=== PATIENT | male | born 1940 | race Two or more races ===

== ENCOUNTER 2018-02-03 14:35 | Inpatient (IN) | payer MEDICARE ==
[~2018-02-03] VITALS: Ht 175.3 cm; Wt 109.8 kg
--- NOTE | 2018-02-03 14:40 | NUR ---
BIB 83 FOR SOB AT HD [facility]ENTER. PATIENT DID NOT START HD, ARRIVED TO ER ON NON REBREATHER MASK. A/OX 4, BREATHING EVEN, SLIGHTLY LABORED. IV INTACT AND PATENT ON R HAND, 20G EMERGENCY SERVICE WORKER. VITALS STABLE, NAD. SAFETY AND COMFORT MEASURES IN PLACE. MD AT BEDSIDE FOR EVAL.
--- NOTE | 2018-02-03 14:45 | NUR ---
PATIENT PLACED ON 3L OXYGEN VIA NC, TOLERATING WELL. OXYGEN SATURATION 99% NO COMPLICATION NOTED, WILL CONTINUE TO MONITOR.
--- NOTE | 2018-02-03 14:51 | NUR ---
STAMP PRESSER AT BEDSIDE FOR BLOOD DRAW.
[2018-02-03 14:55] LABS: BASOPHILS % (AUTO) 0.6 % (0.0-2.0); EOSINOPHILS % (AUTO) 5.8 % (0.0-6.0); HEMATOCRIT 30 % (39-51); HEMOGLOBIN 10.1 g/dL (13.5-17.5); LYMPHOCYTES # (AUTO) 1.1 /CMM (0.8-4.8); LYMPHOCYTES % (AUTO) 19.5 % (20.0-44.0); MEAN CORPUSCULAR HGB CONC 34 g/dl (31.0-36.0); MEAN CORPUSCULAR VOLUME 87 fL (80-96); MONOCYTES # (AUTO) 0.7 /CMM (0.1-1.30); NEUTROPHILS # (AUTO) 3.6 /CMM (1.8-8.9); NEUTROPHILS % (AUTO) 62.1 % (43.0-81.0); PLATELET COUNT (AUTO) 267 /CMM (150-450); RDW COEFFICIENT OF VARIATION 15.7 (11.5-15.0); RED BLOOD CELL COUNT(AUTO) 3.45 MIL/uL (4.5-6.0); WHITE BLOOD COUNT (AUTO) 5.7 K/uL (4.3-11.0)
[2018-02-03 15:04] LABS: CALCIUM, SERUM 9.3 mg/dL (8.5-10.1); CARBON DIOXIDE 28 mmol/L (21-32); CHLORIDE 98 mmol/L (98-107); CREATININE 6.5 mg/dL (0.6-1.3); GLUCOSE 92 mg/dL (74-106); POTASSIUM 4.5 mmol/L (3.5-5.1); SODIUM SERUM 137 mmol/L (136-145); UREA NITROGEN, BLOOD 40 mg/dL (7-18)
[2018-02-03 15:08] LABS: INR 1.19 (0.85-1.15)
[2018-02-03 15:12] LABS: TROPONIN I < 0.017 ng/mL (0.00-0.056)
[2018-02-03] MEDS ORDERED: HYDR-548 PO (15:15)
[2018-02-03] MEDS ORDERED: LEVO50TA8 PO (15:15)
[2018-02-03] MEDS ORDERED: INSU100V7 SQ (15:15)
[2018-02-03] MEDS ORDERED: ATOR40TA PO (15:15)
[2018-02-03] MEDS ORDERED: ASPI-1169 PO (15:15)
[2018-02-03] MEDS ORDERED: CARV6.252 PO (15:15)
[2018-02-03] MEDS ORDERED: AMLO10TA6 PO (15:15)
[2018-02-03 15:17] LABS: B-TYPE NATRIURETIC PEPTIDE 4076 PG/ML (0-125)
--- NOTE | 2018-02-03 16:45 | NUR ---
REPORT GIVEN TO RNMARIA M.
[2018-02-03] MEDS ORDERED: FUROSEMIDE 40 MG/4 ML VIAL IV ONE (17:00)
--- NOTE | 2018-02-03 17:03 | NUR ---
CALLED [facility], NURSE EMERGENCY WAS PAGED.
[2018-02-03] MEDS ORDERED: FUROSEMIDE 40 MG/4 ML VIAL ONE (17:06)
--- NOTE | 2018-02-03 18:00 | NUR ---
PATIENT TRANSPORTED TO [facility] VIA ACLS PROTOCOL. RNMARIA M TO PROVIDE MEÑO.
--- NOTE | 2018-02-03 18:15 | NUR ---
PATIENT ARRIVED TO THE UNIT IN STABLE CONDITION. [facility] VS WNL. SPO2 99% ON 2L VIA NASAL CANNULA. DENIES PAIN/DISCOMFORT. AMBULATORY. SKIN IS INTACT. A/O X4, COOPERATIVE. CURRENTLY IN BED. BED IS LOCKED IN LOWEST POSITION, SIDE RAILS UP X2,. CALL LIGHT WITHIN REACH. EDUCATED TO CALL FOR ASSISTANCE.RECEIVED ADMISSION TELEPHONE ORDERS FROM DR LOUIS. WILL FOLLOW RECEIVED. WILL ENDORSE TO THE DIGITAL COMPUTER SYSTEMS ANALYST RN FOR ADMISSION ASSESSMENT/EVALUATION/MEÑO/
--- NOTE | 2018-02-03 18:28 | NUR ---
HOME MED RECON FAXED TO THE PHARMACY
[2018-02-03] MEDS ORDERED: *INSULIN REGULAR(HUMULIN R)HUM 100 UNIT/ML VIAL SQ PRN (18:30)
[2018-02-03] MEDS ORDERED: ACETAMINOPHEN 650 MG/20.3 ML UDC NG PRN (18:30)
[2018-02-03] MEDS ORDERED: DEXTROSE 50%-WATER 50 ML DISP.SYRIN IV PRN (18:30)
[2018-02-03] MEDS ORDERED: INSULIN REGULAR, HUMAN 100 UNIT/ML 3 ML VIAL SQ PRN (18:30)
[2018-02-03] MEDS ORDERED: HYDROCODONE/APAP 10/325MG 1 EA TABLET PO PRN (19:30)
--- NOTE | 2018-02-03 19:32 | NUR ---
ENDORSED TO IFEANYI GUY FOR ADMISSION/MEÑO
--- NOTE | 2018-02-03 19:33 | NUR ---
RN NOTES RECEIVE PT IN BED A/O X 4, PT ONGOING DIALYSIS NOW. NO S/S OF DISTRESS, STABLE, SAFETY MEASURES IN PLACE, CALL LIGHT WITHIN REACH, WILL CONTINUE TO MONITOR
[2018-02-03 20:00] VITALS: BP 130/90
[2018-02-03] MEDS ORDERED: ZOLPIDEM TARTRATE 5 MG TABLET PO PRN (21:00)
--- NOTE | 2018-02-03 21:55 | NUR ---
INSULIN 6 UNIT OF [facility] NON ADMIN PT REFUSED MED DESPITE RISKS AND BENEFITS OFFERED 3 TIMES REFUSED PT A/O X4 PER PT MY SUGAR IS NORMAL
[2018-02-03] MEDS ORDERED: ATORVASTATIN 40 MG TABLET PO SCH (22:00)
[2018-02-03] MEDS ORDERED: INSULIN GLARGINE, 100 UNIT/ML CARTRIDGE SQ SCH (22:00)
[2018-02-04] VITALS: BP 109/60
[2018-02-04 00:12] VITALS: BP 109/60
[2018-02-04 04:00] VITALS: BP 115/62
--- NOTE | 2018-02-04 06:35 | NUR ---
WINCH TRUCK OPERATOR NOTES PT ASLEEP COMFORTABLY IN BED AND EASILY AWAKEN HEAD OF BED ELEVATED FOR BETTER LUNG EXPANSION AND GOOD CIRCULATION. TOLERATING ROOM AIR 98% NOT IN RESPIRATORY DISTRESS. STABLE CONDITION. NO ACUTE CHANGES THROUGHOUT THE SHIFT. PT KEPT CLEAN AND DRY AND COMFORT. NURSING CARE RENDERED. NEEDS ATTENDED AND ANTICIPATED. ON LOW BED TO ENSURE SAFETY, CALL LIGHT WITHIN REACH, WILL ENDORSE TO THE NEXT SHIFT CONTINUE PLAN OF CARE
[2018-02-04] MEDS ORDERED: BLOOD SUGAR DIAGNOSTIC 1 EACH STRIP IN SCH (07:30)
[2018-02-04] MEDS ORDERED: LEVOTHYROXINE SODIUM 50 MCG TABLET PO SCH (07:30)
--- NOTE | 2018-02-04 07:30 | NUR ---
MSRN NOTES. PT AM MEDS TO BE HELD R/T ONGOING HD.
[2018-02-04 07:41] LABS: BASOPHILS % (AUTO) 0.8 % (0.0-2.0); EOSINOPHILS % (AUTO) 6.8 % (0.0-6.0); HEMATOCRIT 29 % (39-51); HEMOGLOBIN 9.9 g/dL (13.5-17.5); LYMPHOCYTES % (AUTO) 17.5 % (20.0-44.0); MEAN CORPUSCULAR HGB CONC 34 g/dl (31.0-36.0); MEAN CORPUSCULAR VOLUME 89 fL (80-96); MONOCYTES # (AUTO) 0.7 /CMM (0.1-1.30); MONOCYTES % (AUTO) 12.2 % (2.0-12.0); NEUTROPHILS # (AUTO) 3.6 /CMM (1.8-8.9); NEUTROPHILS % (AUTO) 62.7 % (43.0-81.0); PLATELET COUNT (AUTO) 204 /CMM (150-450); RDW COEFFICIENT OF VARIATION 16.5 (11.5-15.0); RED BLOOD CELL COUNT(AUTO) 3.31 MIL/uL (4.5-6.0); WHITE BLOOD COUNT (AUTO) 5.8 K/uL (4.3-11.0)
--- NOTE | 2018-02-04 07:51 | NUR ---
MAILING SPECIALIST NOTES. PT RECEIVED A&0X3, RESTING IN BED. PT TOLERATING ROOM AIR WITHOUT SOB AND WITHOUT S/S OF RESP DISTRESS. PT DENIES PAIN. PT WITH IVC AT R FA SALINE FLUSH PATENT. PT FOR HD TODAY. BED IN LOWEST LOCKED POSITION WITH HNADRAILSX2 AND CALL TAPIA WITHIN REACH. PT BRIEFED ON TODAY'S POC AND IS WITHOUT CONCERN OR COMPLAINT AT THIS TIME.
[2018-02-04 07:59] LABS: CALCIUM, SERUM 8.5 mg/dL (8.5-10.1); CARBON DIOXIDE 30 mmol/L (21-32); CHLORIDE 100 mmol/L (98-107); CREATININE 5.5 mg/dL (0.6-1.3); GLUCOSE 96 mg/dL (74-106); POTASSIUM 4.3 mmol/L (3.5-5.1); SODIUM SERUM 139 mmol/L (136-145); UREA NITROGEN, BLOOD 29 mg/dL (7-18)
[2018-02-04 08:00] VITALS: BP 112/59
--- NOTE | 2018-02-04 08:19 | NUR ---
MSRN NOTES. TELE D/C PER .
[2018-02-04 08:20] VITALS: BP 123/60
[2018-02-04] MEDS ORDERED: ASPIRIN 81 MG TAB.CHEW PO SCH (09:00)
[2018-02-04] MEDS ORDERED: AMLODIPINE BESYLATE 10 MG TABLET PO SCH (09:00)
[2018-02-04] MEDS ORDERED: CARVEDILOL 6.25 MG TABLET PO SCH (09:00)
--- NOTE | 2018-02-04 11:15 | NUR ---
MSRN NOTES. PT PREPARED FOR D/C PER MD. PT WITH FAMILY AT BEDSIDE. PT TOLERATING ROOM AIR WITHOUT S/S OF RESP DISTRESS. PT DENIES PAIN OR DIZZINESS. PT IVC REMOVED AND NAD AT SITE. PT BRIEFED ON SOH D/C PACKET IS VERBALIZING UNDERSTANDING, RESOURCES AND INTENT TO FOLLOW POC. PT WITH ALL BELONGINGS AND DOCUMENT SIGNED, ROOM RE CHECKED FOR BELONGINGS PRIOR TO EXIT. PT AGAIN REFUSED 0720 MEDS, AND STATES HE WILL TAKE AT HOME. RN ESCORT TO FAMILY CAR FOR TRANSPORT. PT AND AND FAMILY ARE WITHOUT CONCERN OR COMPLAINT AT THIS TIME.
[2018-02-04 11:37] LABS: EOSINOPHILS % (MANUAL) 5 % (0-4); LYMPHOCYTES % (MANUAL) 11 % (16-48); MONOCYTES % (MANUAL) 13 % (0-11.0); NEUTROPHILS % (MANUAL) 71 (42-76)
== END 2018-02-04 11:15 | disposition home or self-care (01) | DRG 314 ==
LOC: ER 14:38 → TELE 17:55 → MED 02-04 08:18
PROVIDERS: ADMIT Internal Medicine; ATTEND Internal Medicine
PROC: 5A1D70Z Performance of Urinary Filtration, Intermittent, Less than 6 Hours Per Day (ICD-10-PCS; principal; 2018-02-03)
PROC: 5A1D70Z Performance of Urinary Filtration, Intermittent, Less than 6 Hours Per Day (ICD-10-PCS; 2018-02-04)
DX: I95.9 Hypotension, unspecified (principal); N18.6 End stage renal disease; I13.2 Hypertensive heart and chronic kidney disease with heart failure and with stage 5 chronic kidney disease, or end stage renal disease; E11.22 Type 2 diabetes mellitus with diabetic chronic kidney disease; G62.9 Polyneuropathy, unspecified; D63.1 Anemia in chronic kidney disease; J44.9 Chronic obstructive pulmonary disease, unspecified; I25.10 Atherosclerotic heart disease of native coronary artery without angina pectoris; E03.9 Hypothyroidism, unspecified; Z95.1 Presence of aortocoronary bypass graft; R53.1 Weakness; E78.5 Hyperlipidemia, unspecified; Z99.2 Dependence on renal dialysis; Z87.891 Personal history of nicotine dependence; I50.9 Heart failure, unspecified
CPT/HCPCS: 36415; 71045-TC; 80048-TC; 82962-TC; 83880; 84484-TC; 85025-TC; 85730-TC; 87081-TC; 90935-TC; A4606; J1815; J1940; Z7610

== ENCOUNTER 2020-10-29 05:11 | Inpatient (IN) | payer MEDICARE ==
[~2020-10-29] VITALS: Ht 167.6 cm; Wt 108.9 kg
[~2020-10-29 05:11] MED LIST: AMLO-213 PO; ASPI-1169 PO; ATOR40TA PO; CARV6.252 PO; HYDR-4354 PO; INSU100V7 SQ; LEVO50TA8 PO
--- NOTE | 2020-10-29 05:16 | NUR ---
PT BIBRA81 C/O SOB AND CP. PT TESTED POSITIVE FOR COVID 10/26. PT IS ON DIALYSIS, LAST DIALYSIS WAS 10/24. PT MISSED LAST SCHEDULED DIALYSIS D/T HIS POSITIVE COVID TEST. HE WAS AWAITNG A NEW FACILITY FOR COVID PTS. PT A&OX4, PT DOES HAVE TO BE MINDFUL OF TAKING DEEP BREATHS, BUT IS ABLE TO SPEAK IN FULL SENTENCES. PT SKIN WARM, DRY, AND INTACT. PT CONNECTED TO THE LINUX NETWORK SYSTEMS ADMINISTRATOR AND POX. CALL LIGHT WITHIN REACH. WILL CONITNUE TO MONITOR
[2020-10-29 05:45] LABS: BASOPHILS % (AUTO) 0.6 % (0.0-2.0); EOSINOPHILS % (AUTO) 1.8 % (0.0-6.0); HEMATOCRIT 33 % (39-51); HEMOGLOBIN 11.5 g/dL (13.5-17.5); LYMPHOCYTES # (AUTO) 0.6 /CMM (0.8-4.8); LYMPHOCYTES % (AUTO) 16.8 % (20.0-44.0); MEAN CORPUSCULAR HGB CONC 35 g/dl (31.0-36.0); MEAN CORPUSCULAR VOLUME 94 fL (80-96); MONOCYTES # (AUTO) 0.5 /CMM (0.1-1.30); MONOCYTES % (AUTO) 13.3 % (2.0-12.0); NEUTROPHILS # (AUTO) 2.3 /CMM (1.8-8.9); NEUTROPHILS % (AUTO) 67.5 % (43.0-81.0); PLATELET COUNT (AUTO) 140 /CMM (150-450); RED BLOOD CELL COUNT(AUTO) 3.52 MIL/uL (4.5-6.0); WHITE BLOOD COUNT (AUTO) 3.4 K/uL (4.3-11.0)
--- NOTE | 2020-10-29 05:45 | NUR ---
COVID SWAB SENT TO LAB
[2020-10-29 05:54] LABS: CALCIUM, SERUM 8.7 mg/dL (8.5-10.1); CARBON DIOXIDE 23 mmol/L (21-32); CHLORIDE 97 mmol/L (98-107); GLUCOSE 80 mg/dL (74-106); POTASSIUM 4.5 mmol/L (3.5-5.1); SODIUM SERUM 135 mmol/L (136-145)
--- NOTE | 2020-10-29 06:01 | NUR ---
XRAY AT BEDSIDE
[2020-10-29 06:05] LABS: CREATININE 11.5 mg/dL (0.6-1.3); UREA NITROGEN, BLOOD 101 mg/dL (7-18)
--- NOTE | 2020-10-29 06:05 | NUR ---
СЕРГЕЙ WATKINS; GIVEN TO DR. OSPINA [id number] CREAT 11.5
[2020-10-29] MEDS ORDERED: ALBUTEROL SULFATE 8 GM HFA.AER.AD IH PRN (06:30)
[2020-10-29] MEDS ORDERED: DEXAMETHASONE SOD PHOSPHATE 10 MG/ML VIAL IV ONE (06:30)
[2020-10-29] MEDS ORDERED: DEXAMETHASONE SOD PHOSPHATE 10 MG/ML VIAL ONE (06:53)
[2020-10-29 07:19] LABS: C-REACTIVE PROTEIN 5.2 mg/dL (0.0-0.9)
[2020-10-29] MEDS: LEVOTHYROXINE SODIUM 50 MCG TABLET PO SCH (08:00)
[2020-10-29] MEDS ORDERED: ACETAMINOPHEN 650 MG/SUPP.RECT RC PRN (08:00)
[2020-10-29 08:03] LABS: ABG BASE EXCESS -7.4 mmol/L; ABG OXYGEN SATURATION 97.4 % (92.0-98.5); ABG PCO2 32.4 mmHg (35.0-45.0); ABG PH 7.346 (7.350-7.450); ABG PO2 110.4 mmHg (75.0-100.0); COHb 0.2 % (0.5-1.5); MetHb 0.3 % (0.0-1.5); O2Hb 96.9 % (94.0-97.0); SITE, ABG Right Radial; VENT MODE, BG N/C 2LPM
[2020-10-29] MEDS: CEFTRIAXONE 1 G in IV D5W 50 ML IV SCH (08:30)
[2020-10-29] MEDS: ASPIRIN 81 MG TAB.CHEW PO SCH (09:55)
[2020-10-29] MEDS: AZITHROMYCIN 500 MG in IV D5W 250 ML IV SCH (09:55)
[2020-10-29] MEDS: CARVEDILOL 6.25 MG TABLET PO SCH ×2 (09:56→17:17)
[2020-10-29] MEDS: AMLODIPINE BESYLATE 10 MG TABLET PO SCH (09:56)
[2020-10-29] MEDS ORDERED: CARVEDILOL 6.25 MG TABLET ONE (17:19)
[2020-10-29] MEDS ORDERED: HYDROCODONE/APAP 10/325MG TABLET ONE (17:21)
[2020-10-29] MEDS: HYDROCODONE/APAP 10/325MG TABLET PO PRN (17:45)
--- NOTE | 2020-10-29 18:19 | NUR ---
SPOKE TO JOHN PAUL PARRA DNP REGARDING DIALYSIS ORDER. PER KRISTIAN PARRA, DIALYSIS ORDER HAVE TO BE PALCED BY SERGIO MCGOVERN.
--- NOTE | 2020-10-29 18:25 | NUR ---
REPORT GIVEN TO MALENA PEDERSEN FOR MEÑO
--- NOTE | 2020-10-29 19:00 | NUR ---
pt transported to unit on [address] with emt and rn at bedside w/ acls protocol. nad noted during transport. pt ambulated from gurney to bed w/o assist
--- NOTE | 2020-10-29 19:30 | NUR ---
RN NOTES PT CAME IN FROM ER AT 1906. ALERT AND ORIENTED X 4. ABLE TO COMMUNICATE NEEDS VERBALLY, BREATHING EVEN AND UNLABORED. COMPLAINS OF SOB ONLY WHEN COUGHING. ON O2 VIA NC AT 2L WITH O2 SAT OF 98 %. DENIES ANY PAIN AT THIS TIME. ON TELE MONITOR SHOWS SINUS RHYTHM HR 63. WITH LEFT FA AV FISTULA, BRUIT AND THRILL PRESENT. R AC G 18 PATENT AND INTACT. IV SITE NORMAL, NO REDNESS NOTED. PT AMBULATORY. SKIN IS INTACT. PT ORIENTED TO FACILITY ROUTINE. ALL SAFETY MEASURES IMPLEMENTED PER PROTOCOL. CALL LIGHT WITHIN REACH. SIDE RAILS UP X 2. BED LOCKED IN LOWEST POSITION.
--- NOTE | 2020-10-29 21:30 | NUR ---
RN NOTES PT ONLY WANTS TO DISCLOSE HEALTH INFORMATION TO DAUGHTER ROMERO AND GRAND DAUGHTER ANDRE. CHARGE NURSE MADE AWARE. PUT A NOTE ON PTS CHART.
[2020-10-29] MEDS: ATORVASTATIN 40 MG TABLET PO SCH (22:01)
[2020-10-30] VITALS: BP 115/81
--- NOTE | 2020-10-30 00:20 | NUR ---
RN NOTE PT DONE WITH DIALYSIS. 3L REMOVED. NO DISTRESS NOTED. AV FISTULA DRESSING CLEAN AND INTACT. NO BLEEDING NOTED.
[2020-10-30] MEDS: ACETAMINOPHEN 325 MG TABLET PO PRN ×2 (00:28→21:23)
--- NOTE | 2020-10-30 00:28 | NUR ---
RN NOTE PT COMPLAINED ON SCIATIC PAIN 04/10. PT REQUESTED FOR TYLENOL, REFUSED NORCO.
--- NOTE | 2020-10-30 01:30 | NUR ---
RN NOTE PT SLEEPING COMFORTABLY. NO SIGNS OF PAIN.
[2020-10-30 04:00] VITALS: BP 112/79
[2020-10-30 06:31] LABS: BASOPHILS % (AUTO) 0.1 % (0.0-2.0); EOSINOPHILS % (AUTO) 0.1 % (0.0-6.0); HEMATOCRIT 32 % (39-51); HEMOGLOBIN 11.1 g/dL (13.5-17.5); LYMPHOCYTES # (AUTO) 0.5 /CMM (0.8-4.8); LYMPHOCYTES % (AUTO) 13.5 % (20.0-44.0); MEAN CORPUSCULAR HGB CONC 35 g/dl (31.0-36.0); MEAN CORPUSCULAR VOLUME 95 fL (80-96); MONOCYTES # (AUTO) 0.4 /CMM (0.1-1.30); NEUTROPHILS # (AUTO) 2.6 /CMM (1.8-8.9); NEUTROPHILS % (AUTO) 74.3 % (43.0-81.0); PLATELET COUNT (AUTO) 140 /CMM (150-450); RED BLOOD CELL COUNT(AUTO) 3.38 MIL/uL (4.5-6.0); WHITE BLOOD COUNT (AUTO) 3.5 K/uL (4.3-11.0)
--- NOTE | 2020-10-30 06:48 | NUR ---
RN NOTES Patient in bed sleeping, easily arousable by verbal stimuli. Continue on o2 via nc at 2L, tolerating, no distress noted. Pt denies any sob. Tele reading sr hr 62. Pt able to make needs known, attended to needs. No s/sx of complications form hd noted. Dressing on left av fistula clean dry and intact. Strict isolation precaution maintained. All safety measure implemented. Will endorse to next shift nurse for mc.
[2020-10-30 07:02] LABS: ALANINE AMINOTRANSFERASE 23 U/L (12-78); ALBUMIN 3.1 g/dL (3.4-5.0); ALKALINE PHOSPHATASE 66 U/L (46-116); ASPARTATE AMINOTRANSFERASE 22 U/L (15-37); BILIRUBIN,TOTAL 0.3 mg/dL (0.2-1.0); CALCIUM, SERUM 8.5 mg/dL (8.5-10.1); CARBON DIOXIDE 27 mmol/L (21-32); CHLORIDE 100 mmol/L (98-107); CREATININE 7.4 mg/dL (0.6-1.3); GLUCOSE 145 mg/dL (74-106); POTASSIUM 3.7 mmol/L (3.5-5.1); SODIUM SERUM 137 mmol/L (136-145); UREA NITROGEN, BLOOD 57 mg/dL (7-18)
[2020-10-30 08:00] VITALS: BP 107/56
--- NOTE | 2020-10-30 08:00 | NUR ---
RN NOTES Patient in bed alert and oriented x4, easily arousable by verbal stimuli. Continue on o2 via nc at 2L, tolerating, no distress noted. Pt denies any sob. Tele reading sr. Pt able to make needs known, attended to needs. No s/sx of pain reported or visible.. Dressing on left av fistula clean dry and intact. Strict isolation precaution maintained. All safety measure implemented. call light within react. bed locked in position. will continue to monitor.
[2020-10-30] MEDS: CARVEDILOL 6.25 MG TABLET PO SCH ×2 (09:00→17:02)
[2020-10-30] MEDS: AMLODIPINE BESYLATE 10 MG TABLET PO SCH (09:00)
[2020-10-30] MEDS: ASPIRIN 81 MG TAB.CHEW PO SCH (09:13)
[2020-10-30] MEDS: LEVOTHYROXINE SODIUM 50 MCG TABLET PO SCH (09:13)
[2020-10-30] MEDS: DEXAMETHASONE SOD PHOSPHATE 4 MG/ML VIAL IV SCH (09:13)
--- NOTE | 2020-10-30 09:18 | NUR ---
RN NOTES HELD AMLOPIDINE AND CARVEDIOL FOR LOW SBP AND HR SBP 107/56 HR 58
--- NOTE | 2020-10-30 09:20 | NUR ---
PT IS GOING TO HAVE HEMODIALYSIS PROCEDURE TODAY.HELD ADMINISTERING IV ATB ZITHROMAX AND ROCEPHIN FOR NOW AND CLARIFYING WITH THE INTERNATIONAL TRADE MANAGER,OSCAR WHAT TIME WILL IT BE DONE
--- NOTE | 2020-10-30 09:23 | NUR ---
OSCAR,GIFTS OFFICER ARRIVED AND WILL CLARIFY WITH DR ARECHIGA IF HEMODIALYSIS WILL BE DONE TODAY.
[2020-10-30] MEDS: CEFTRIAXONE 1 G in IV D5W 50 ML IV SCH (10:33)
[2020-10-30 12:00] VITALS: BP 131/65
[2020-10-30 16:00] VITALS: BP 116/59
[2020-10-30] MEDS: AZITHROMYCIN 500 MG in IV D5W 250 ML IV SCH (16:49)
--- NOTE | 2020-10-30 18:37 | NUR ---
RN NOTES Patient sitting in chair at the bedside alert and oriented x4.Continue on O2 via nc at 2L, tolerating, no distress noted. Pt denies any sob. Tele reading sr. Pt able to make needs known, attended to needs. No s/sx of pain reported or visible. Dressing on left av fistula clean dry and intact. Strict isolation precaution maintained. All safety measure implemented. call light within react. bed locked in position. will continue to monitor.
[2020-10-30 20:00] VITALS: BP 162/71
[2020-10-30] MEDS: ATORVASTATIN 40 MG TABLET PO SCH (21:23)
--- NOTE | 2020-10-30 23:32 | NUR ---
PT SLEEPING COMFORTABLY DENYING ANY PAIN OR DISTRESS.CALL LIGHT PLACED WITHIN REACH.ENDORSED TO NIGHT NURSE CARE.
[2020-10-31 00:43] VITALS: BP 125/50
[2020-10-31 04:21] VITALS: BP 104/54
[2020-10-31 06:35] LABS: BASOPHILS % (AUTO) 0.2 % (0.0-2.0); HEMATOCRIT 31 % (39-51); HEMOGLOBIN 10.7 g/dL (13.5-17.5); LYMPHOCYTES # (AUTO) 0.5 /CMM (0.8-4.8); MEAN CORPUSCULAR HGB CONC 35 g/dl (31.0-36.0); MEAN CORPUSCULAR VOLUME 95 fL (80-96); MONOCYTES # (AUTO) 0.4 /CMM (0.1-1.30); MONOCYTES % (AUTO) 6.9 % (2.0-12.0); NEUTROPHILS # (AUTO) 4.5 /CMM (1.8-8.9); NEUTROPHILS % (AUTO) 82.9 % (43.0-81.0); PLATELET COUNT (AUTO) 171 /CMM (150-450); RED BLOOD CELL COUNT(AUTO) 3.26 MIL/uL (4.5-6.0); WHITE BLOOD COUNT (AUTO) 5.4 K/uL (4.3-11.0)
[2020-10-31 07:08] LABS: CALCIUM, SERUM 8.5 mg/dL (8.5-10.1); CARBON DIOXIDE 25 mmol/L (21-32); CHLORIDE 97 mmol/L (98-107); CREATININE 7.4 mg/dL (0.6-1.3); GLUCOSE 103 mg/dL (74-106); MAGNESIUM 2.1 mg/dL (1.8-2.4); PHOSPHORUS 6.8 mg/dL (2.5-4.9); POTASSIUM 4.1 mmol/L (3.5-5.1); SODIUM SERUM 136 mmol/L (136-145); UREA NITROGEN, BLOOD 60 mg/dL (7-18)
--- NOTE | 2020-10-31 07:26 | NUR ---
MANAGER HARDWARE OPENING NOTES PATIENT IN BED, ASLEEP. BREATHING IS EVEN AND UNLABORED. NO SIGNS OF SOB OR RESPIRATORY DISTRESS NOTED. NO S/S OF PAIN SUCH MOANING, GUARDING OR FACIAL GRIMACING. TELE READING SR 55. RFA MIDLINE PRESENT AND INTACT. SAFETY PRECAUTIONS IN PLACE, BED IN LOW POSITION AND LOCKED, RAILS UP X2, CALL LIGHT WITHIN REACH. WILL CONTINUE TO MONITOR PATIENT.
--- NOTE | 2020-10-31 08:05 | NUR ---
STATIONARY ENGINEER SUPERVISOR NOTES PATIENT ACCIDENTLY PULLED ON HIS MIDLINE AND IT IS LEAKING NOW. CHARGE NURSE AWARE; MIDLINE NURSE CONTACTED.
[2020-10-31] MEDS: ASPIRIN 81 MG TAB.CHEW PO SCH (08:07)
[2020-10-31] MEDS: AMLODIPINE BESYLATE 10 MG TABLET PO SCH (08:07)
[2020-10-31] MEDS: CARVEDILOL 6.25 MG TABLET PO SCH ×2 (08:07→16:32)
[2020-10-31] MEDS: LEVOTHYROXINE SODIUM 50 MCG TABLET PO SCH (08:08)
[2020-10-31] MEDS: AZITHROMYCIN 250 MG TABLET PO SCH (08:20)
[2020-10-31 09:09] VITALS: BP 115/60
[2020-10-31 12:15] VITALS: BP 123/64
[2020-10-31] MEDS: CEFTRIAXONE 1 G in IV D5W 50 ML IV SCH (13:48)
[2020-10-31] MEDS: DEXAMETHASONE SOD PHOSPHATE 4 MG/ML VIAL IV SCH (13:55)
[2020-10-31 16:18] VITALS: BP 138/67
--- NOTE | 2020-10-31 18:37 | NUR ---
SOFTWARE DEVELOPMENT TEST ENGINEER CLOSING NOTES PATIENT REMAINS IN BED, RESTING, A/O X4. ON OXYGEN THERAPY AT 2 LPM VIA NASAL CANULA; BREATHING IS EVEN AND UNLABORED. NO SIGNS OF SOB OR RESPIRATORY DISTRESS NOTED. NO COMPLAINS OF PAIN DURING THE DAY. TELE READING SR 74. WENDIE MIDLINE PRESENT AND INTACT. ALL NEEDS ATTENDED THROUGHOUT THE DAY. SAFETY PRECAUTIONS IN PLACE, BED IN LOW POSITION AND LOCKED, RAILS UP X2, CALL LIGHT WITHIN REACH. WILL ENDORSE TO BLUEPRINTING AND PHOTOCOPY SUPERVISOR NURSE.
--- NOTE | 2020-10-31 19:15 | NUR ---
oral and maxillofacial pathologist opening notes Received Pt from morning nurse. Pt is sitting in bed comfortably talking on his cellphone. Pt is alert and orientedX4. Respiration is 2 L NC. No SOB. No S/S of distress noted. WENDIE midline# 18 is clean, intact flushes well and SL. Tele monitor showed sinus rhytm HR at 69 bpm. Safety precautions is maintained. Bed at low position, brakes locked, hob elevated, urinal at the bedside, side railsupX2 and call light is within reach. Will continue to monitor.
[2020-10-31 20:00] VITALS: BP 115/57
[2020-10-31] MEDS: ATORVASTATIN 40 MG TABLET PO SCH (21:04)
[2020-11-01] VITALS: BP 96/51
[2020-11-01 04:00] VITALS: BP 98/36
--- NOTE | 2020-11-01 06:57 | NUR ---
rn telephone triage closing notes Pt is resting in bed comfortably. Pt is alert and orientedX4. Respiration is 2 L NC. No SOB. No S/S of distress noted. VS is stable. Afebrile. WENDIE midline# 18 is clean, intact flushes well and SL. Tele monitor showed sinus rhytm with PAC HR at 60 bpm. Kept Pt clean, dry and comfortable. All needs met and attnded. Safety precautions is maintained. Bed at low position, brakes locked, hob elevated, urinal at the bedside, side railsupX2 and call light is within reach. Will endorse to morning nurse for MEÑO.
[2020-11-01 07:34] LABS: CALCIUM, SERUM 8.2 mg/dL (8.5-10.1); CARBON DIOXIDE 23 mmol/L (21-32); CHLORIDE 95 mmol/L (98-107); GLUCOSE 105 mg/dL (74-106); MAGNESIUM 2.1 mg/dL (1.8-2.4); SODIUM SERUM 133 mmol/L (136-145); UREA NITROGEN, BLOOD 79 mg/dL (7-18)
[2020-11-01 07:37] LABS: BASOPHILS % (AUTO) 0.1 % (0.0-2.0); HEMATOCRIT 31 % (39-51); HEMOGLOBIN 10.4 g/dL (13.5-17.5); LYMPHOCYTES # (AUTO) 0.5 /CMM (0.8-4.8); MEAN CORPUSCULAR HGB CONC 34 g/dl (31.0-36.0); MEAN CORPUSCULAR VOLUME 95 fL (80-96); MONOCYTES # (AUTO) 0.4 /CMM (0.1-1.30); NEUTROPHILS % (AUTO) 79.9 % (43.0-81.0); PLATELET COUNT (AUTO) 193 /CMM (150-450); RED BLOOD CELL COUNT(AUTO) 3.24 MIL/uL (4.5-6.0); WHITE BLOOD COUNT (AUTO) 4.9 K/uL (4.3-11.0)
[2020-11-01 07:42] LABS: PHOSPHORUS 8.1 mg/dL (2.5-4.9)
[2020-11-01 08:00] VITALS: BP 143/63
--- NOTE | 2020-11-01 08:06 | NUR ---
TELE/RN OPENING NOTES RELIEVED PATIENT ON BED. PATIENT IS ON 2 L OXYGEN VIA NASAL CANNULA. PATIENT IN NO APPARENT RESPIRATORY DISTRESS NOTED. NO COMPLAINED OF PAIN NOTED AT THIS TIME. TELE MONITOR READING SINUS RHYTHM 61BPM BPM. WILL CONTINUE TO MONITOR.
[2020-11-01] MEDS: LEVOTHYROXINE SODIUM 50 MCG TABLET PO SCH (09:26)
[2020-11-01] MEDS: AMLODIPINE BESYLATE 10 MG TABLET PO SCH (09:27)
[2020-11-01] MEDS: ASPIRIN 81 MG TAB.CHEW PO SCH (09:27)
[2020-11-01] MEDS: AZITHROMYCIN 250 MG TABLET PO SCH (09:27)
[2020-11-01] MEDS: CARVEDILOL 6.25 MG TABLET PO SCH ×2 (09:27→17:00)
[2020-11-01] MEDS: DEXAMETHASONE SOD PHOSPHATE 4 MG/ML VIAL IV SCH (09:27)
[2020-11-01] MEDS: CEFTRIAXONE 1 G in IV D5W 50 ML IV SCH (09:28)
[2020-11-01 12:00] VITALS: BP 143/63
[2020-11-01] MEDS ORDERED: DEXA6TAB6 PO (13:02)
[2020-11-01] MEDS ORDERED: AZIT250T13 PO (13:02)
[2020-11-01] MEDS ORDERED: ALBUMIN 25% 25 GM in PREMIX 1 EA IV STA (14:58)
[2020-11-01 16:00] VITALS: BP 106/48
--- NOTE | 2020-11-01 17:17 | NUR ---
unable to discharge today per community case manager unable to arrange oxygen until tommorw.
--- NOTE | 2020-11-01 18:19 | NUR ---
TELE/RN NOTES PATIENT COMPLAINED OF MILD BACK PAIN. PATIENT ASK FOR TYLENOL 650MG 1 TAB P.O. WAS GIVEN. WILL CONTINUE TO MONITOR.
--- NOTE | 2020-11-01 18:21 | NUR ---
TELE/RN NOTES BP 106/48 P 62 CARVEDILOL 6.25MG 1TAB P.O. WAS WITHHELD. WILL CONTINUE TO MONITOR.
[2020-11-01] MEDS: ACETAMINOPHEN 325 MG TABLET PO PRN (18:24)
--- NOTE | 2020-11-01 19:17 | NUR ---
sales representative sales manager opening notes Received Pt from morning nurse. Pt is resting in bed comfortably. Pt is alert and orientedX4. Respiration is 2 L NC. No SOB. No S/S of distress noted. WENDIE midline# 18 is clean, intact flushes well and SL. LFA AV fistula is clean, intact and patent. Tele monitor showed sinus rhytm HR at 70 bpm. Per am nurse Pt had dialysis today with output 1.7 L. Safety precautions is maintained. Bed at low position, brakes locked, hob elevated, urinal at the bedside, side railsupX2 and call light is within reach. Will continue to monitor.
--- NOTE | 2020-11-01 19:26 | NUR ---
TELE/RN CLOSING PATIENT IS ON BED, NON VERBAL. PATIENT IS ON 2 L OXYGEN VIA NASAL CANNULA TOLERATING WELL. PATIENT IN NO APPARENT RESPIRATORY DISTRESS NOTED. TELE MONITOR READING SINUS RHYTHM. SEEN AND EXAMINED BY MD WITH ORDERS MADE AND CARRIED OUT. ALL DUE MEDICATIONS WAS GIVEN. SAFETY PRECAUTIONS WAS IN PLACED. BED IN LOWEST POSITION AND LOCKED. SIDERAILS UP X2. CALL LIGHT WITHIN REACH. HEMODIALYSIS WAS DONE TODAY 1.7 L OUTPUT. WILL ENDORSED TO PCA FOR MEÑO.
[2020-11-01 20:00] VITALS: BP 115/88
[2020-11-01] MEDS: ATORVASTATIN 40 MG TABLET PO SCH (21:05)
--- NOTE | 2020-11-01 22:00 | NUR ---
family and consumer sciences teacher notes Pt is complaining of dry cough and requesting Robitussin. Informed and notified OLGA Oliva regarding Pt's cough. CINDER WORKER ordered Robittusin DM syrup 5 ml/po/ Q 6hr. Order carried out.
--- NOTE | 2020-11-01 22:26 | NUR ---
health educator notes Pt is complaining of dry cough and requesting robitussin. Administered Robitussin DM syrup 5 ml/ po/ Q 6 hr/prn as ordered for cough. Safety precaution is maintained. Will continue to monitor.
[2020-11-01] MEDS ORDERED: GUAIFENESIN/D-METHORPHAN HB 5 ML UDC PO PRN (22:30)
--- NOTE | 2020-11-01 23:55 | NUR ---
catalyst operator chief notes Pt's daughter called and asked about Pt's condition. Informed Pt daughter that Pt is stable and O2 sat is 90% on 2 L NC. No SOB. No S/S of distress noted. Pt is sleeping in bed comfortably. No cough. Pt's daughter appreciate the info and verbalize understanding. Will continue to monitor. Addendum: 11/02/20 at 0013 by ADELAIDE LOCO RN Pt daughter named Abbie.
[2020-11-02] VITALS: BP 112/46
[2020-11-02 04:00] VITALS: BP 117/52
[2020-11-02] MEDS: HYDROCODONE/APAP 10/325MG TABLET PO PRN ×2 (04:07→23:58)
--- NOTE | 2020-11-02 04:07 | NUR ---
industrial production manager notes Pt is complaining of back pain 9/10 on pain scale and requesting pain meds. Administered norco 10 as ordered for back pain. VS is stable. Safety precautions is maintained.
--- NOTE | 2020-11-02 07:00 | NUR ---
knotter closing notes Pt is resting in bed comfortably. Pt is alert and orientedX4. Respiration is 2 L NC. No SOB. No S/S of distress noted. VS is stable. Afebrile. WENDIE midline# 18 is clean, intact flushes well and SL. LFA AV fistula is clean, intact and patent. Tele monitor showed sinus rhytm with PAC HR at 68 bpm. Kept Pt clean,dry and comfortable. All needs met and attended. Safety precautions is maintained. Bed at low position, brakes locked, hob elevated, urinal at the bedside, side railsupX2 and call light is within reach. Will endorse to morning nurse for MEÑO.
[2020-11-02 07:39] LABS: CALCIUM, SERUM 8.7 mg/dL (8.5-10.1); CARBON DIOXIDE 29 mmol/L (21-32); CHLORIDE 96 mmol/L (98-107); GLUCOSE 103 mg/dL (74-106); MAGNESIUM 2.2 mg/dL (1.8-2.4); PHOSPHORUS 7.5 mg/dL (2.5-4.9); POTASSIUM 4.5 mmol/L (3.5-5.1); SODIUM SERUM 137 mmol/L (136-145); UREA NITROGEN, BLOOD 69 mg/dL (7-18)
[2020-11-02 07:41] LABS: CREATININE 7.5 mg/dL (0.6-1.3)
[2020-11-02 07:42] LABS: BASOPHILS % (AUTO) 0.1 % (0.0-2.0); HEMATOCRIT 31 % (39-51); HEMOGLOBIN 10.6 g/dL (13.5-17.5); LYMPHOCYTES # (AUTO) 0.5 /CMM (0.8-4.8); LYMPHOCYTES % (AUTO) 6.9 % (20.0-44.0); MEAN CORPUSCULAR HGB CONC 34 g/dl (31.0-36.0); MEAN CORPUSCULAR VOLUME 96 fL (80-96); MONOCYTES # (AUTO) 0.4 /CMM (0.1-1.30); MONOCYTES % (AUTO) 5.8 % (2.0-12.0); NEUTROPHILS # (AUTO) 5.9 /CMM (1.8-8.9); NEUTROPHILS % (AUTO) 87.2 % (43.0-81.0); PLATELET COUNT (AUTO) 207 /CMM (150-450); RED BLOOD CELL COUNT(AUTO) 3.26 MIL/uL (4.5-6.0); WHITE BLOOD COUNT (AUTO) 6.8 K/uL (4.3-11.0)
[2020-11-02 08:00] VITALS: BP 115/62
[2020-11-02] MEDS: LEVOTHYROXINE SODIUM 50 MCG TABLET PO SCH (08:52)
[2020-11-02] MEDS: AZITHROMYCIN 250 MG TABLET PO SCH (08:53)
[2020-11-02] MEDS: CEFTRIAXONE 1 G in IV D5W 50 ML IV SCH (08:53)
[2020-11-02] MEDS: ASPIRIN 81 MG TAB.CHEW PO SCH (08:53)
[2020-11-02] MEDS: CARVEDILOL 6.25 MG TABLET PO SCH ×2 (08:54→16:24)
[2020-11-02] MEDS: AMLODIPINE BESYLATE 10 MG TABLET PO SCH (08:54)
[2020-11-02] MEDS: DEXAMETHASONE SOD PHOSPHATE 4 MG/ML VIAL IV SCH (08:55)
[2020-11-02 10:53] LABS: ABG BASE EXCESS -0.8 mmol/L; ABG OXYGEN SATURATION 86.6 % (92.0-98.5); ABG PCO2 40.6 mmHg (35.0-45.0); ABG PH 7.391 (7.350-7.450); ABG PO2 52.6 mmHg (75.0-100.0); AaDO2 475.2 mmHg; COHb 0.6 % (0.5-1.5); O2Hb 86.1 % (94.0-97.0); SITE, ABG Right Radial; VENT MODE, BG NRB
[2020-11-02 12:00] VITALS: BP 96/48
[2020-11-02] MEDS: APIXABAN 2.5 MG TABLET PO SCH ×2 (12:46→16:25)
[2020-11-02 16:00] VITALS: BP 91/41
[2020-11-02 20:00] VITALS: BP 101/39
[2020-11-02] MEDS: ATORVASTATIN 40 MG TABLET PO SCH (21:19)
--- NOTE | 2020-11-02 22:44 | NUR ---
RN NOTES Seen and examined by OLGA Oliva. DIMITRIOS at this time.
[2020-11-03] VITALS: BP 101/51
[2020-11-03 04:00] VITALS: BP 103/39
--- NOTE | 2020-11-03 06:55 | NUR ---
RN CLOSING NOTES Pt on prone position SpO2 95%. Encourange on prone position as tolerated. All nursing needs attended, due meds given as ordered. Afebrile the whole shift. Endorsed.
[2020-11-03 07:42] LABS: ABG OXYGEN SATURATION 93.8 % (92.0-98.5); ABG PCO2 37.9 mmHg (35.0-45.0); ABG PH 7.393 (7.350-7.450); ABG PO2 68.4 mmHg (75.0-100.0); AaDO2 606.7 mmHg; COHb 0.6 % (0.5-1.5); MetHb 0.1 % (0.0-1.5); O2Hb 93.1 % (94.0-97.0); SITE, ABG Right Radial; VENT MODE, BG HFNC 60L 100% NRB
[2020-11-03 08:00] VITALS: BP 102/45
--- NOTE | 2020-11-03 08:00 | NUR ---
RECEIVED PATIENT IN BED. NO ACUTE DISTRESS NOTED. PATIENT ALERT & ORIENTED X3-4. PATIENT ON HIGH FLOW/NONREBREATHER MASK, TOLERATING WELL. PATIENT ON CARDIKAC MONITOR, NSR WITH PAC NOTED. PATIENT WENDIE MIDLING INTACT, FLUSHED WELL. PATIENT SAFETY MEASURES MAINTAINED. CALL LIGHT WITHIN REACH. WILL CONTINUE TO MONITOR.
[2020-11-03] MEDS: CEFTRIAXONE 1 G in IV D5W 50 ML IV SCH (08:29)
[2020-11-03] MEDS: ASPIRIN 81 MG TAB.CHEW PO SCH (08:29)
[2020-11-03] MEDS: AZITHROMYCIN 250 MG TABLET PO SCH (08:30)
[2020-11-03] MEDS: DEXAMETHASONE SOD PHOSPHATE 4 MG/ML VIAL IV SCH (08:30)
[2020-11-03] MEDS: LEVOTHYROXINE SODIUM 50 MCG TABLET PO SCH (08:30)
[2020-11-03] MEDS: CARVEDILOL 6.25 MG TABLET PO SCH ×2 (08:48→17:00)
[2020-11-03] MEDS: AMLODIPINE BESYLATE 10 MG TABLET PO SCH (08:49)
[2020-11-03] MEDS: APIXABAN 2.5 MG TABLET PO SCH ×2 (08:58→17:06)
[2020-11-03 09:52] LABS: BASOPHILS # (AUTO) 0.1 /CMM (0.0-0.2); BASOPHILS % (AUTO) 0.5 % (0.0-2.0); HEMATOCRIT 35 % (39-51); LYMPHOCYTES # (AUTO) 0.5 /CMM (0.8-4.8); LYMPHOCYTES % (AUTO) 4.3 % (20.0-44.0); MEAN CORPUSCULAR HGB CONC 34 g/dl (31.0-36.0); MEAN CORPUSCULAR VOLUME 96 fL (80-96); MONOCYTES # (AUTO) 0.5 /CMM (0.1-1.30); MONOCYTES % (AUTO) 4.3 % (2.0-12.0); NEUTROPHILS # (AUTO) 9.8 /CMM (1.8-8.9); NEUTROPHILS % (AUTO) 90.9 % (43.0-81.0); PLATELET COUNT (AUTO) 247 /CMM (150-450); RED BLOOD CELL COUNT(AUTO) 3.67 MIL/uL (4.5-6.0); WHITE BLOOD COUNT (AUTO) 10.8 K/uL (4.3-11.0)
[2020-11-03 10:15] LABS: ALANINE AMINOTRANSFERASE 34 U/L (12-78); ALBUMIN 2.9 g/dL (3.4-5.0); ALKALINE PHOSPHATASE 57 U/L (46-116); ASPARTATE AMINOTRANSFERASE 67 U/L (15-37); BILIRUBIN,TOTAL 0.5 mg/dL (0.2-1.0); CALCIUM, SERUM 8.7 mg/dL (8.5-10.1); CARBON DIOXIDE 26 mmol/L (21-32); CHLORIDE 95 mmol/L (98-107); GLUCOSE 110 mg/dL (74-106); POTASSIUM 4.8 mmol/L (3.5-5.1); SODIUM SERUM 135 mmol/L (136-145); TOTAL PROTEIN, SERUM 7.2 g/dL (6.4-8.2)
[2020-11-03 10:18] LABS: CREATININE 9.6 mg/dL (0.6-1.3); UREA NITROGEN, BLOOD 101 mg/dL (7-18)
[2020-11-03 10:59] LABS: FERRITIN 4420 ng/mL (8-388)
[2020-11-03 11:07] LABS: C-REACTIVE PROTEIN 27.4 mg/dL (0.0-0.9)
[2020-11-03 12:00] VITALS: BP 100/47
[2020-11-03 16:00] VITALS: BP 91/47
[2020-11-03] MEDS: HYDROCODONE/APAP 10/325MG TABLET PO PRN (16:44)
--- NOTE | 2020-11-03 18:29 | NUR ---
PATIENT IN BED. NO ACUTE DISTRESS NOTED. PATIENT ALERT & ORIENTED X3-4. PATIENT ON HIGH FLOW/NONREBREATHER MASK, TOLERATING WELL. PATIENT ON CARDIKAC MONITOR, NSR WITH PAC NOTED. PATIENT WENDIE MIDLING INTACT, FLUSHED WELL. PATIENT SAFETY MEASURES MAINTAINED. CALL LIGHT WITHIN REACH. WILL ENDORSE PLAN OF CARE TO ONCOMING SHIFT
[2020-11-03 20:00] VITALS: BP 96/42
--- NOTE | 2020-11-03 20:00 | NUR ---
RN NOTES RECEIVED PATIENT IN BED ALERT AND ORIENTED X 4, ON PRONE POSITION. WITH NON REBREATHER AND HFNC 60L 100 %, SATING AT 85 %. CALLED IN RT, REPOSITIONED PT, NO DISTRESS NOTED. WITH LFA AV FISTULA NO BLEEDING NOTED. WENDIE MIDLINE FLUSHING GOOD. CALL LIGHT WITHIN REACH. BED LOCKED IN LOWEST POSITION. SIDE RAILS UP X 2.
--- NOTE | 2020-11-03 20:05 | NUR ---
RN NOTES PT ENCOURAGED TO USE URINAL TO AVOID DESATURATION WHEN AMBULATING TO BATHROOM.
--- NOTE | 2020-11-03 20:25 | NUR ---
RT NOTE PT RECEIVED ON HIGH FLOW NASAL CANNULA @ 100% ON 60LPM WITH NONBREATHER MASK @ 100%. WATER BAG FULL. PT IS CURRENTLY ON PRON POSITION AND AWAKE/ALERT. MALENA RIVERA @ BEDSIDE. WILL CONTINUE TO MONITOR CLOSELY. Addendum: 11/03/20 at 2025 by DAJA HUDSON RT Amended: Links added.
--- NOTE | 2020-11-03 21:30 | NUR ---
RN NOTES PATIENT STILL ON PRONE POSITION, TOLERATING WELL, PT VERBALLY RESPONDING. NO DISTRESS NOTED. O2 SAT AT 93 % AT THIS TIME. WILL CONTINUE TO MONITOR. BED LOCKED IN LOWEST POSITION, CALL LIGHT WITHIN REACH.
[2020-11-03] MEDS: ATORVASTATIN 40 MG TABLET PO SCH (22:30)
[2020-11-04] MEDS: HYDROCODONE/APAP 10/325MG TABLET PO PRN (00:20)
[2020-11-04 01:22] VITALS: BP 96/42
--- NOTE | 2020-11-04 03:30 | NUR ---
RN NOTES AT 309 PT WAS FOUND PRONE ON FLOOR BY CNAS, AFTER HEARING LOUD NOISE, UPON ENTERING THE ROOM, PT WAS TRANSFERRED FROM FLOOR TO BED. PT UNCONSCIOUS, NO PULSE. ACTIVATED CODE BLUE. COMPRESSIONS STARTED. ER MD, DR MOSER AND CODE TEAM AT BEDSIDE. ROSC ACHIEVED. PT INTUBATED 317. NOTIFIED CONE TRUCKER OLGA LOPEZ AND DR LOUIS. FAMILY ALSO NOTIFIED. NSG TIN DIPPER AWARE.
[2020-11-04] MEDS ORDERED: PROPOFOL 100 ML ONE (03:44)
[2020-11-04] MEDS ORDERED: PROPOFOL 100 ML IV PRN (04:00)
[2020-11-04] MEDS ORDERED: NOREPINEPHRINE 8 MG in IV NS 0.9% 242 ML IV PRN (04:30)
[2020-11-04] MEDS ORDERED: CALCIUM CHLORIDE 1,000 MG/10 ML DISP.SYRIN ONE (04:59)
--- NOTE | 2020-11-04 05:00 | NUR ---
RN NOTES PT FOUND PULSELESS AT 0440 WITH RN AND RT AT BEDSIDE. CALLED CODE BLUE. STARTED ON COMPRESSIONS. ER , DR MOSER AND CODE TEAM ARRIVED AT 044. 0442 EPI IN 0444 PULSELESS 0446 EPI IN 7 CALCIUM GLUCONATE IN 0448 PULSELESS 0449 CALCIUM GLUCONATE IN 044 EPI IN 045 NO PULSE 0453 EPI IN 454 PIOTR, DR MOSER, PRONOUNCED PT .
--- NOTE | 2020-11-04 05:08 | NUR ---
RN NOTES DR LOUIS MADE AWARE.
--- NOTE | 2020-11-04 05:10 | NUR ---
RN NOTE PTS DAUGHTERJUAN ALBERTO NOTIFIED BY NSG SUP.
[2020-11-04] MEDS ORDERED: NOREPINEPHRINE 4 MG/4 ML AMPUL IV ONE (06:04)
[2020-11-04] MEDS ORDERED: EPINEPHRINE (1:10,000) SYRINGE 1 MG/10 ML DISP.SYRIN IVP ONE (06:04)
[2020-11-04] MEDS ORDERED: FEE EMEERGENCY 1 MIN EA MC ONE (06:04)
[2020-11-04] MEDS ORDERED: CALCIUM CHLORIDE 1,000 MG/10 ML DISP.SYRIN IV ONE (06:04)
--- NOTE | 2020-11-04 06:20 | NUR ---
RN NOTES [facility] NOTIFIED. SPOKE TO BETHANY. REFERAL # [id number]
[2020-11-04] MEDS ORDERED: AMLODIPINE BESYLATE 10 MG TABLET PO SCH (09:00)
== END 2020-11-04 06:05 | disposition expired | DRG 177 ==
LOC: ER 05:13 → TRANSITION 06:31 → TELE1 18:40 → ICUOV 11-04 04:12
PROVIDERS: ADMIT Nurse Practitioner Acute Care; ATTEND Internal Medicine
PROC: 5A1D70Z Performance of Urinary Filtration, Intermittent, Less than 6 Hours Per Day (ICD-10-PCS; principal; 2020-10-30)
PROC: 05HY33Z Insertion of Infusion Device into Upper Vein, Percutaneous Approach (ICD-10-PCS; 2020-10-30)
PROC: 0BH18EZ Insertion of Endotracheal Airway into Trachea, Via Natural or Artificial Opening Endoscopic (ICD-10-PCS; 2020-11-04)
PROC: 5A12012 Performance of Cardiac Output, Single, Manual (ICD-10-PCS; 2020-11-04)
PROC: 06HY33Z Insertion of Infusion Device into Lower Vein, Percutaneous Approach (ICD-10-PCS; 2020-11-04)
DX: U07.1 COVID-19 (principal); N18.6 End stage renal disease; J96.01 Acute respiratory failure with hypoxia; J15.9 Unspecified bacterial pneumonia; J12.89 Other viral pneumonia; I13.2 Hypertensive heart and chronic kidney disease with heart failure and with stage 5 chronic kidney disease, or end stage renal disease; I50.32 Chronic diastolic (congestive) heart failure; E87.1 Hypo-osmolality and hyponatremia; D68.69 Other thrombophilia; J44.0 Chronic obstructive pulmonary disease with (acute) lower respiratory infection; Z99.2 Dependence on renal dialysis; E11.22 Type 2 diabetes mellitus with diabetic chronic kidney disease; I25.10 Atherosclerotic heart disease of native coronary artery without angina pectoris; E11.42 Type 2 diabetes mellitus with diabetic polyneuropathy; D63.1 Anemia in chronic kidney disease; D69.6 Thrombocytopenia, unspecified; D72.819 Decreased white blood cell count, unspecified; E03.9 Hypothyroidism, unspecified; E66.01 Morbid (severe) obesity due to excess calories; E78.5 Hyperlipidemia, unspecified; F41.9 Anxiety disorder, unspecified; F17.200 Nicotine dependence, unspecified, uncomplicated; Z95.1 Presence of aortocoronary bypass graft; Z79.82 Long term (current) use of aspirin; Z79.4 Long term (current) use of insulin; Z68.38 Body mass index [BMI] 38.0-38.9, adult; N25.0 Renal osteodystrophy; E83.39 Other disorders of phosphorus metabolism
CPT/HCPCS: 36415; 36600; 71045-TC; 80048-TC; 80053-TC; 82550-TC; 82728-TC; 82803-TC; 83615-TC; 83735-TC; 83880; 84100-TC; 84484-TC; 85025-TC; 85378-TC; 86140-TC; 86706; 86850-TC; 87081-TC; 87340; 90935-TC; 94760-TC; 94762-TC; 94799-TC; A4216; A4217; G0378; J0171; J0456; J0696; J1100; J3490; J7030; J7040; J7060; P9047; U0003